=== PATIENT | female | born 1960 ===

== ENCOUNTER 2018-06-25 07:34 | Emergency (ER) | payer OTHER ==
[~2018-06-25] VITALS: Ht 157.5 cm; Wt 81.6 kg
[2018-06-25] MEDS ORDERED: FORTAMET1000 MG PO (08:08)
[2018-06-25] MEDS ORDERED: COZAAR100 MG PO (08:08)
[2018-06-25] MEDS ORDERED: BAYER CHEWABLE81 MG PO (08:09)
[2018-06-25] MEDS ORDERED: ATORVASTATIN CA10 MG PO (08:10)
[2018-06-25] MEDS ORDERED: NORFLEX100MG PO (12:00)
[2018-06-25] MEDS ORDERED: KETO10TA2 PO (12:00)
== END 2018-06-25 12:33 | disposition home or self-care (01) ==
LOC: ER 07:34
DX: M25.512 Pain in left shoulder (principal); M25.511 Pain in right shoulder; M54.2 Cervicalgia